=== PATIENT | male | born 1955 | race Caucasian/White ===

== ENCOUNTER 2016-10-20 13:58 | Inpatient (IN) | payer OTHER ==
[2016-10-20] MEDS ORDERED: SODIUM CHLORIDE 0.9% 1,000 ML IV STA ×2 (14:51→15:58)
[2016-10-20] MEDS ORDERED: SODIUM CHLORIDE 0.9% 500 ML IV STA ×2 (14:51→15:58)
[2016-10-20] MEDS ORDERED: IPRATROPIUM-ALBUTEROL 3 ML NEB INHALATION STA (14:51)
[2016-10-20] MEDS ORDERED: MORPHINE SULFATE 2 MG/ML SYRINGE IVP ONE (14:52)
[2016-10-20] MEDS ORDERED: ACETAMINOPHEN IV (For NPO) 1,000 MG in EMPTY BAG 1 BAG IVPB STA (14:53)
[2016-10-20] MEDS ORDERED: KETOROLAC 30 MG/ML 1 ML VIAL IVP STA (14:53)
--- NOTE | 2016-10-20 15:08 | ED ---
General Adult HPI - General Chief complaint: Shortness of Breath Stated complaint: poss pneumonia-sent by Time Seen by Provider: 10/20/16 14:45 Source: patient, RN notes reviewed, old records reviewed Mode of arrival: ambulatory Limitations: no limitations - History of Present Illness Initial comments: This is a 61-year-old male here for evaluation of cough congestion fever and shortness of breath. Patient presented from urgent care today for further evaluation and treatment. Patient denies elevated fever earlier today. Patient does have significant history of lung disease and pleurodesis with concurrent pleural effusion secondary to ulcer colitis. Patient is with mild cough seen and no significant pain. No recent travel history no known sick contacts and no recent hospitalizations. - Related Data Home Medications Medication Instructions Recorded Confirmed Beta-Carotene [Beta Carotene] 25,000 unit PO HS 10/20/16 10/20/16 Cyanocobalamin [Vitamin B-12] 500 mcg PO HS 10/20/16 10/20/16 Levothyroxine Sodium [Synthroid] 175 mcg PO DAILY 10/20/16 10/20/16 Multivitamins, Thera [Multivitamin] 1 tab PO HS 10/20/16 10/20/16 [place]-3 Fatty Acids [[place]-3] 1,000 mg PO HS 10/20/16 10/20/16 Allergies Allergy/AdvReac Type Severity Reaction Status Date / Time No Known Allergies Allergy Verified 10/20/16 14:49 Review of Systems ROS Statement: Those systems with pertinent positive or pertinent negative responses have been documented in the HPI. ROS Other: All systems not noted in ROS Statement are negative. Past Medical History Additional Past Medical History / Comment(s): fluid in lungs, multiple pleurocentesis, colitis History of Any Multi-Drug Resistant Organisms: None Reported Past Surgical History: Orthopedic Surgery Additional Past Surgical History / Comment(s): left shoulder, hand surgery, colectomy Past Psychological History: No Psychological Hx Reported Smoking Status: Never smoker Past Alcohol Use History: Rare Past Drug Use History: None Reported General Exam Limitations: no limitations General appearance: alert, in no apparent distress, anxious Head exam: Present: atraumatic, normocephalic, normal inspection Eye exam: Present: normal appearance, PERRL, EOMI. Absent: scleral icterus, conjunctival injection, periorbital swelling ENT exam: Present: normal exam, mucous membranes moist Neck exam: Present: normal inspection. Absent: tenderness, meningismus, lymphadenopathy Respiratory exam: Present: normal lung sounds bilaterally, decreased breath sounds, prolonged expiratory. Absent: respiratory distress, wheezes, rales, rhonchi, stridor Cardiovascular Exam: Present: normal rhythm, tachycardia, normal heart sounds. Absent: systolic murmur, diastolic murmur, rubs, gallop, clicks GI/Abdominal exam: Present: soft, normal bowel sounds. Absent: distended, tenderness, guarding, rebound, rigid Extremities exam: Present: normal inspection, full ROM, normal capillary refill. Absent: tenderness, pedal edema, joint swelling, calf tenderness Back exam: Present: normal inspection Neurological exam: Present: alert, oriented X3, CN II-XII intact Psychiatric exam: Present: normal affect, normal mood Skin exam: Present: warm, dry, intact, normal color. Absent: rash Course Vital Signs 10/20/16 10/20/16 14:14 15:52 Temperature 100.4 F H Pulse Rate 102 H 93 Respiratory 20 Rate Blood Pressure 135/77 O2 Sat by Pulse 90 L Oximetry - Reevaluation(s) Reevaluation #1: 10/20/16 15:57 Patient does have improvement with symptomatically treatment Reevaluation #2: 10/20/16 15:57 Oxygenation has improved with breathing treatment EKG Findings - EKG Comments: EKG Findings:: EKG shows sinus rhythm rate of 91, HI 156, QRS 140, QTC 477 Medical Decision Making - Medical Decision Making 61 male ER for evaluation of fever, cough and congestion, positive source of pneumonia, patient do not asepsis, no elevated white count oxygen lower up on arrival to emergency room, improved with breathing treatments and oxygenation. Patient be admitted for monitoring of pulmonary status - Lab Data Result diagrams: 10/20/16 15:01 Lab Results 10/20/16 Range/Units 15:01 WBC 10.6 (3.8-10.6) k/uL RBC 5.10 (4.30-5.90) m/uL Hgb 15.9 (13.0-17.5) gm/dL Hct 49.4 (39.0-53.0) % MCV 96.9 (80.0-100.0) fL MCH 31.3 (25.0-35.0) pg MCHC 32.3 (31.0-37.0) g/dL RDW 12.9 (11.5-15.5) % Plt Count 316 (150-450) k/uL Neutrophils % 78 % Lymphocytes % 7 % Monocytes % 10 % Eosinophils % 1 % Basophils % 0 % Neutrophils # 8.2 H (1.3-7.7) k/uL Lymphocytes # 0.8 L (1.0-4.8) k/uL Monocytes # 1.1 H (0-1.0) k/uL Eosinophils # 0.1 (0-0.7) k/uL Basophils # 0.0 (0-0.2) k/uL - Radiology Data Radiology results: report reviewed (Chest x-ray two-view positive for pneumonia) , image reviewed Critical Care Time Critical Care Time: Yes Total Critical Care Time: 31 Disposition Clinical Impression: Community acquired pneumonia Disposition: ADMITTED IP TO THIS [facility] Condition: Fair Referrals: Rigo Corcoran MD [Primary Care Provider] - 1-2 days
--- NOTE | 2016-10-20 15:30 | XR ---
EXAMINATION TYPE: XR chest 2V DATE OF EXAM: 10/20/2016 3:26 PM COMPARISON: NONE INDICATION: Short of breath difficulty breathing TECHNIQUE: Frontal and lateral views of the chest are obtained. FINDINGS: The heart size is normal. The pulmonary vasculature is normal. There is a moderate right pleural effusion. A right lower lobe infiltrate is present. Mild left lower lobe infiltrate is present. IMPRESSION: 1. Bibasilar infiltrates. Follow-up to clearing is recommended. 2. Moderate right pleural effusion
[2016-10-20] MEDS: SODIUM CHLORIDE 0.9% 1,000 ML IV STA ×2 (15:41→15:44)
[2016-10-20 15:45] LABS: Basophils % (A) 0 %; CH 31.2; CHCM 32.3; Eosinophils # (A) 0.1 k/uL (0-0.7); Eosinophils % (A) 1 %; HCT 49.4 % (39.0-53.0); HDW 2.19; HGB 15.9 gm/dL (13.0-17.5); Luc # (Auto) 0.39; Luc % (Auto) 4; Lymphocytes # (A) 0.8 k/uL (1.0-4.8); Lymphocytes % (A) 7 %; MCH 31.3 pg (25.0-35.0); MCHC 32.3 g/dL (31.0-37.0); MCV 96.9 fL (80.0-100.0); Mean Platelet Volume 7.2; Monocytes # (A) 1.1 k/uL (0-1.0); Monocytes % (A) 10 %; Neutrophils # (A) 8.2 k/uL (1.3-7.7); Neutrophils % (A) 78 %; RDW 12.9 % (11.5-15.5); WBC 10.6 k/uL (3.8-10.6); WBC (Perox) 10.82
[2016-10-20 15:57] LABS: INR 1.1 (<1.1); Partial Thromboplastin Time 26.7 sec (22.0-30.0); Prothrombin Time 10.8 sec (9.0-12.0)
[2016-10-20] MEDS ORDERED: LEVOFLOXACIN 750MG-D5W PMX 750 MG in DEXTROSE/WATER 1 150ML.BAG IVPB STA (15:58)
[2016-10-20] MEDS ORDERED: PNEUMONIA PROTOCOL UTILIZED 1 EACH MISC PO PRN (15:58)
[2016-10-20] MEDS ORDERED: ACETAMINOPHEN IV (For NPO) 1,000 MG in EMPTY BAG 1 BAG IVPB PRN (15:59)
[2016-10-20] MEDS ORDERED: MORPHINE SULFATE 4 MG/ML SYRINGE IVP PRN (15:59)
[2016-10-20 16:00] LABS: ALT 93 U/L (21-72); AST 92 U/L (17-59); Alkaline Phosphatase 161 U/L (38-126); Anion Gap 11 mmol/L; Blood Urea Nitrogen 11 mg/dL (9-20); Calcium 9.1 mg/dL (8.4-10.2); Carbon Dioxide 28 mmol/L (22-30); Chloride 99 mmol/L (98-107); Glucose 91 mg/dL (74-99); Magnesium 2.1 mg/dL (1.6-2.3); Non-African American GFR(MDRD) >60 (>60 ml/min/1.73 sqM); Sodium 138 mmol/L (137-145); Total Bilirubin 1.4 mg/dL (0.2-1.3); Total Protein 7.2 g/dL (6.3-8.2)
[2016-10-20 16:11] LABS: Potassium 5.3 mmol/L (3.5-5.1)
[2016-10-20 16:16] LABS: Creatine Kinase 81 U/L (55-170)
[2016-10-20 16:27] LABS: Creatine Kinase MB 1.3 ng/mL (0.0-2.4); Troponin I <0.012 ng/mL (0.000-0.034)
[2016-10-20 18:08] VITALS: BMI 25.3
[2016-10-20] MEDS: SODIUM CHLORIDE 0.9% 1,000 ML IV SCH (18:26)
--- NOTE | 2016-10-20 19:51 | P.HPIM ---
History of Present Illness H&P Date: 10/20/16 Chief Complaint: Cough with fever and shortness of breath. This is a history and physical on a 61-year-old white male who has an underlying history of pleurodesis in the past for chronic pleural effusion. The patient has been complaining of fever and chills. His , who states that for the last 2 weeks he's been probably working a little bit too hard and has been complaining of a sore throat. Low-grade fever stated. X-ray does show bilateral pneumonia with right pleural effusion Therefore, he is appropriately admitted. Review of Systems Constitutional: Reports fever Respiratory: Reports as per HPI, Reports cough, Reports cough with sputum, Reports respiratory infections Gastrointestinal: Reports as per HPI Musculoskeletal: Denies myalgias Integumentary: Denies pruritus, Denies rash Past Medical History Additional Past Medical History / Comment(s): fluid in lungs, multiple pleurocentesis, ulcer colitis History of Any Multi-Drug Resistant Organisms: None Reported Past Surgical History: Orthopedic Surgery, Ventriculoperitoneal Shunt Additional Past Surgical History / Comment(s): left shoulder, hand surgery, colectomy with reversal; thyroid removal with radiation Past Anesthesia/Blood Transfusion Reactions: No Reported Reaction Past Psychological History: No Psychological Hx Reported Smoking Status: Never smoker Past Alcohol Use History: Rare Past Drug Use History: None Reported Medications and Allergies Home Medications Medication Instructions Recorded Confirmed Type Beta-Carotene [Beta Carotene] 25,000 unit PO HS 10/20/16 10/20/16 History Cyanocobalamin [Vitamin B-12] 500 mcg PO HS 10/20/16 10/20/16 History Levothyroxine Sodium [Synthroid] 175 mcg PO DAILY 10/20/16 10/20/16 History Multivitamins, Thera [Multivitamin] 1 tab PO HS 10/20/16 10/20/16 History [place]-3 Fatty Acids [[place]-3] 1,000 mg PO HS 10/20/16 10/20/16 History Allergies Allergy/AdvReac Type Severity Reaction Status Date / Time No Known Allergies Allergy Verified 10/20/16 14:49 Physical Exam Vitals: Vital Signs Temp Pulse Pulse Resp BP BP Pulse Ox 10/20/16 18:53 97.2 F L 86 16 115/69 92 L 10/20/16 17:40 98.5 F 89 16 117/65 97 10/20/16 16:25 98.4 F 99 18 131/64 91 L 10/20/16 16:01 95 Intake and Output 10/20/16 10/20/16 10/20/16 06:59 14:59 22:59 Other: Voiding Method Toilet Weight 73.5 kg Patient Weight 10/21/16 06:59 Weight 73.5 kg - Constitutional General appearance: no acute distress - EENT Eyes: EOMI - Neck Neck: no lymphadenopathy - Respiratory Respiratory: right: diminished - Cardiovascular Rhythm: regular Heart sounds: normal: S1, S2 - Gastrointestinal General gastrointestinal: soft, no tenderness - Neurologic Neurologic: CNII-XII intact, focal deficits - Psychiatric Psychiatric: A&O x's 3, appropriate affect Results CBC & Chem 7: 10/20/16 15:01 10/20/16 15:01 Thrombosis Risk Factor Assmnt - Choose All That Apply Any of the Below Risk Factors Present?: Yes Each Factor Represents 1 point: Age 41-60 years, Sepsis (< 1month) Thrombosis Risk Factor Assessment Total Risk Factor Score: 2 Thrombosis Risk Factor Assessment Level: Low Risk Assessment and Plan (1) Community acquired pneumonia Status: Acute (2) Pleural effusion Status: Acute Plan: Continue current regimen of antibiotic treatment. Nebulizers also given. Question need for steroid and possible pulmonology referral if the patient does not improve. Otherwise, he is a full code.
[2016-10-20] MEDS: IPRATROPIUM-ALBUTEROL 3 ML NEB INHALATION SCH (20:29)
[2016-10-20] MEDS: MULTIVITAMINS, THERA 1 EACH TAB PO SCH (20:34)
[2016-10-20] MEDS: IBUPROFEN 600 MG TAB PO PRN (20:34)
[2016-10-20] MEDS: BETA CAROTENE 25000 UNIT PO SCH (20:34)
[2016-10-20] MEDS: CYANOCOBALAMIN 500 MCG TAB PO SCH (20:34)
[2016-10-20] MEDS ORDERED: NON-FORMULARY DRUG (Omega-3 Fatty Acids [Omega-3] 1,000 MG) PO SCH (21:00)
[2016-10-20] MEDS ORDERED: HYDROcodone/APAP 5-325MG 1 EACH TAB PO PRN (22:28)
[2016-10-21] MEDS: SODIUM CHLORIDE 0.9% 1,000 ML IV SCH ×3 (02:08→20:08)
[2016-10-21] MEDS: LEVOTHYROXINE 100 MCG TAB PO SCH (06:26)
[2016-10-21] MEDS: LEVOTHYROXINE 75 MCG TAB PO SCH (06:26)
[2016-10-21] MEDS: IPRATROPIUM-ALBUTEROL 3 ML NEB INHALATION SCH ×4 (07:57→20:04)
--- NOTE | 2016-10-21 08:33 | XR ---
EXAMINATION TYPE: XR chest 2V DATE OF EXAM: 10/21/2016 8:29 AM COMPARISON: 10/20/2016 HISTORY: Shortness of breath TECHNIQUE: Frontal and lateral views of the chest are obtained. FINDINGS: Scattered senescent parenchymal changes noted. Hyperinflation compatible with COPD. Persistent airspace consolidation right lower lobe with loculated right-sided pleural effusion. No si gnificant change appreciated. Heart size is stable. Mediastinal structures are stable and grossly unremarkable. No evidence for hilar prominence. Degenerative changes dorsal spine. IMPRESSION: 1. Persistent airspace consolidation right lower lobe with loculated right-sided pleural effusion. No significant change appreciated.
--- NOTE | 2016-10-21 08:35 | US ---
EXAMINATION TYPE: US chest DATE OF EXAM: 10/21/2016 8:23 AM COMPARISON: NONE CLINICAL HISTORY: US. EXAM MEASUREMENTS: No pleural effusion identified. Right side marked for possible thoracentesis outside the dept. Left side marked for possible thoracentesis outside the dept. Pulmonologists are able to review the images in the patient?s EMR. IMPRESSION: Right chest scanned, No fluid visualized, not marked for drainage.
[2016-10-21] MEDS: IBUPROFEN 600 MG TAB PO PRN ×2 (09:39→18:05)
--- NOTE | 2016-10-21 12:37 | P.CNPUL ---
History of Present Illness Consult date: 10/21/16 Requesting physician: Rigo Corcoran Reason for consult: abnormal CXR/CT Chief complaint: Shortness of breath, cough, congestion History of present illness: This is a very pleasant 61-year-old gentleman who follows with Dr. Corcoran as his primary care physician. He has a history of ulcerative colitis status post colectomy and hypothyroidism secondary to thyroidectomy with radiation. He is a lifelong nonsmoker. He also follows with Dr. James in our office for chronic bilateral recurrent pleural effusions secondary to the colitis. He is status post pleurodesis bilaterally. He had a second pleurodesis performed on the right lung by Dr. Conrad in the [facility] many years ago. He had not had significant recurrent pleural effusions since that time. He presented here yesterday with complaints of increasing shortness of breath cough congestion and fever. He was seen in Dr. Corcoran's office and subsequently recommended admission for suspected bilateral pneumonias with right pleural effusion. He is seen today on the regular medical floor in consultation. He is awake and alert in no acute distress. He states he is breathing easier today as compared to yesterday. He continues with a headache and chills. He does have a productive cough of thick yellowish-green sputum. His chest x-ray today reveals some improvement in the left lung infiltrate with continued loculated pleural effusion on the right per ultrasound. He is currently afebrile. He is maintaining good O2 saturations in the low 90s on room air. He's been hemodynamically stable. No leukocytosis. Influenza screen is negative. His liver enzymes and alk phos are slightly elevated. Review of Systems 14 point review of system was conducted. All negative other than as mentioned in HPI. Past Medical History Additional Past Medical History / Comment(s): Recurrent bilateral pleural effusions with previous thoracentesis and bilateral pleurodesis secondary to ulcer colitis, status post colectomy. History of Any Multi-Drug Resistant Organisms: None Reported Past Surgical History: Orthopedic Surgery, Ventriculoperitoneal Shunt Additional Past Surgical History / Comment(s): left shoulder, hand surgery, colectomy with reversal; thyroid removal with radiation Past Anesthesia/Blood Transfusion Reactions: No Reported Reaction Past Psychological History: No Psychological Hx Reported Smoking Status: Never smoker Past Alcohol Use History: Rare Past Drug Use History: None Reported Medications and Allergies Home Medications Medication Instructions Recorded Confirmed Type Beta-Carotene [Beta Carotene] 25,000 unit PO HS 10/20/16 10/20/16 History Cyanocobalamin [Vitamin B-12] 500 mcg PO HS 10/20/16 10/20/16 History Levothyroxine Sodium [Synthroid] 175 mcg PO DAILY 10/20/16 10/20/16 History Multivitamins, Thera [Multivitamin] 1 tab PO HS 10/20/16 10/20/16 History Her[place]-3 Fatty Acids [Heron-3] 1,000 mg PO HS 10/20/16 10/20/16 History Allergies Allergy/AdvReac Type Severity Reaction Status Date / Time No Known Allergies Allergy Verified 10/20/16 14:49 Physical Exam GENERAL EXAM: Alert, active, comfortable in no apparent distress. HEAD: Normocephalic. EYES: Normal reaction of pupils, equal size. NOSE: Clear with pink turbinates. THROAT: No erythema or exudates. NECK: No masses, no JVD. CHEST: No chest wall deformity. LUNGS: Equal air entry with no crackles in the right posterior base. CVS: S1 and S2 normal with no audible murmurs, regular rhythm. ABDOMEN: No hepatosplenomegaly, normal bowel sounds, no guarding or rigidity. SPINE: No scoliosis or deformity SKIN: No rashes CENTRAL NERVOUS SYSTEM: No focal deficits, tone is normal in all 4 extremities. Extremities: There is no significant peripheral edema. No clubbing, no cyanosis. Peripheral pulses are intact. Results - Laboratory Findings CBC and BMP: 10/20/16 15:01 10/20/16 15:01 PT/INR, D-dimer PT 10.8 sec (9.0-12.0) 10/20/16 15:01 INR 1.1 (<1.1) 10/20/16 15:01 - Diagnostic Findings Chest x-ray: image reviewed Assessment and Plan Plan: Impression: #1 Right lower lobe pneumonia, suspect community-acquired. #2 Chronic right loculated pleural effusion. #3 History of recurrent bilateral pleural effusions status post bilateral pleurodesis with second pleurodesis on the right #4 History of ulcerative colitis status post colectomy. #5 History of thyroid cancer status post thyroidectomy with radiation. Plan: The patient was seen and evaluated by Dr. James. His chest x-rays, ultrasound and labs were reviewed. There is no plans for repeat thoracentesis of the right lung. This fluid is loculated and chronic and nature. Also, the patient has had bilateral pleurodesis with the second pleurodesis performed on the right lung. The patient is in no acute respiratory distress and is maintaining good O2 saturations in the 90s on room air. We'll treat him for his suspected pneumonia. We'll continue with his current antibiotic in the form of Levaquin. He remains on bronchodilators 4 times a day and when necessary. We will increase his activity as tolerated. We'll continue to follow make further recommendations based on his clinical status. Time with Patient: Greater than 30
[2016-10-21] MEDS ORDERED: LEVOFLOXACIN 750MG-D5W PMX 750 MG in DEXTROSE/WATER 1 150ML.BAG IVPB SCH (16:00)
[2016-10-21 17:31] LABS: Anion Gap 8 mmol/L; Blood Urea Nitrogen 13 mg/dL (9-20); Calcium 8.3 mg/dL (8.4-10.2); Carbon Dioxide 28 mmol/L (22-30); Chloride 101 mmol/L (98-107); Glucose 170 mg/dL (74-99); Non-African American GFR(MDRD) >60 (>60 ml/min/1.73 sqM); Potassium 4.1 mmol/L (3.5-5.1); Sodium 137 mmol/L (137-145)
[2016-10-21] MEDS: ACETAMINOPHEN TAB 325 MG TAB PO PRN (20:04)
[2016-10-21] MEDS: MULTIVITAMINS, THERA 1 EACH TAB PO SCH (20:04)
[2016-10-21] MEDS: BETA CAROTENE 25000 UNIT PO SCH (20:04)
[2016-10-21] MEDS: CYANOCOBALAMIN 500 MCG TAB PO SCH (20:05)
[2016-10-22] MEDS: ACETAMINOPHEN TAB 325 MG TAB PO PRN (04:58)
[2016-10-22] MEDS: LEVOTHYROXINE 75 MCG TAB PO SCH (06:25)
[2016-10-22] MEDS: LEVOTHYROXINE 100 MCG TAB PO SCH (06:25)
[2016-10-22 07:34] VITALS: BP 127/76; PULSE 83; RESP 16; TEMP 97.2
[2016-10-22] MEDS: SODIUM CHLORIDE 0.9% 1,000 ML IV SCH (08:00)
[2016-10-22] MEDS: IBUPROFEN 600 MG TAB PO PRN (08:04)
--- NOTE | 2016-10-22 08:17 | P.DS ---
Providers Date of admission: 10/21/16 12:20 Attending physician: Rigo Corcoran Primary care physician: Rigo Corcoran - Discharge Diagnosis(es) (1) Community acquired pneumonia Current Visit: Yes Status: Acute (2) Pleural effusion Current Visit: Yes Status: Acute Patient Condition at Discharge: Fair Plan - Discharge Summary New Discharge Prescriptions: Levofloxacin [Levaquin] 750 mg PO DAILY #5 tab Discharge Medication List Beta-Carotene [Beta Carotene] 25,000 unit PO HS 10/20/16 [History] Cyanocobalamin [Vitamin B-12] 500 mcg PO HS 10/20/16 [History] Levothyroxine Sodium [Synthroid] 175 mcg PO DAILY 10/20/16 [History] Multivitamins, Thera [Multivitamin] 1 tab PO HS 10/20/16 [History] [place]-3 Fatty Acids [[place]-3] 1,000 mg PO HS 10/20/16 [History] Levofloxacin [Levaquin] 750 mg PO DAILY #5 tab 10/22/16 [Rx] Follow up Appointment(s)/Referral(s): Rigo Corcoran MD [Primary Care Provider] - 1 Week Discharge Disposition: HOME SELF-CARE
[2016-10-22] MEDS: IPRATROPIUM-ALBUTEROL 3 ML NEB INHALATION SCH (08:22)
[2016-10-22 08:56] LABS: CHCM 31.6; HCT 46.3 % (39.0-53.0); HDW 2.28; HGB 14.5 gm/dL (13.0-17.5); MCHC 31.4 g/dL (31.0-37.0); MCV 98.7 fL (80.0-100.0); Mean Platelet Volume 7.3; RBC 4.69 m/uL (4.30-5.90); WBC 9.3 k/uL (3.8-10.6)
[2016-10-22 09:17] LABS: ALT 63 U/L (21-72); AST 36 U/L (17-59); Alkaline Phosphatase 122 U/L (38-126); Anion Gap 10 mmol/L; Blood Urea Nitrogen 9 mg/dL (9-20); Calcium 8.9 mg/dL (8.4-10.2); Carbon Dioxide 28 mmol/L (22-30); Chloride 102 mmol/L (98-107); Glucose 181 mg/dL (74-99); Non-African American GFR(MDRD) >60 (>60 ml/min/1.73 sqM); Potassium 4.3 mmol/L (3.5-5.1); Sodium 140 mmol/L (137-145); Total Bilirubin 0.7 mg/dL (0.2-1.3); Total Protein 6.2 g/dL (6.3-8.2)
--- NOTE | 2016-10-22 11:19 | P.PN ---
Subjective This is a very pleasant 61-year-old gentleman who follows with Dr. Corcoran as his primary care physician. He has a history of ulcerative colitis status post colectomy and hypothyroidism secondary to thyroidectomy with radiation. He is a lifelong nonsmoker. He also follows with Dr. James in our office for chronic bilateral recurrent pleural effusions secondary to the colitis. He is status post pleurodesis bilaterally. He had a second pleurodesis performed on the right lung by Dr. Conrad in the [facility] many years ago. He had not had significant recurrent pleural effusions since that time. He presented here yesterday with complaints of increasing shortness of breath cough congestion and fever. He was seen in Dr. Corcoran's office and subsequently recommended admission for suspected bilateral pneumonias with right pleural effusion. Influenza screen is negative. He is seen again today 10/22/2016 in follow-up. He is awake and alert in no acute distress. He's been up to the shower. He is anxious to go home. He denies any worsening shortness of breath, cough or congestion. He remains without leukocytosis. Afebrile. Maintaining good O2 saturations in the mid 90s on room air. Objective - Vital Signs Vital signs: Vital Signs Temp 97.2 F L 10/22/16 07:00 Pulse 83 10/22/16 07:00 Resp 16 10/22/16 07:00 BP 127/76 10/22/16 07:00 Pulse Ox 94 L 10/22/16 07:00 Intake & Output 10/21/16 10/22/16 10/22/16 18:59 06:59 18:59 Intake Total 500 Balance 500 Intake: Oral 500 Other: Voiding Method Toilet # Voids 1 2 - Exam GENERAL EXAM: Alert, active, comfortable in no apparent distress. HEAD: Normocephalic. EYES: Normal reaction of pupils, equal size. NOSE: Clear with pink turbinates. THROAT: No erythema or exudates. NECK: No masses, no JVD. CHEST: No chest wall deformity. LUNGS: Equal air entry with no wheeze, rhonchi or dullness. There is faint crackles in the right posterior base. CVS: S1 and S2 normal with no audible murmurs, regular rhythm. ABDOMEN: No hepatosplenomegaly, normal bowel sounds, no guarding or rigidity. SPINE: No scoliosis or deformity SKIN: No rashes CENTRAL NERVOUS SYSTEM: No focal deficits, tone is normal in all 4 extremities. Extremities: There is no significant peripheral edema. No clubbing, no cyanosis. Peripheral pulses are intact. - Labs CBC & Chem 7: 10/22/16 08:23 10/22/16 08:23 Labs: Abnormal Lab Results - Last 24 Hours (Table) 10/21/16 10/22/16 Range/Units 17:04 08:23 Glucose 170 H 181 H (74-99) mg/dL Calcium 8.3 L (8.4-10.2) mg/dL Total Protein 6.2 L (6.3-8.2) g/dL Albumin 3.0 L (3.5-5.0) g/dL Assessment and Plan Plan: Impression: #1 Right lower lobe pneumonia, suspect community-acquired. #2 Chronic right loculated pleural effusion. #3 History of recurrent bilateral pleural effusions status post bilateral pleurodesis with second pleurodesis on the right. #4 History of ulcerative colitis status post colectomy. #5 History of thyroid cancer status post thyroidectomy with radiation. Plan: The patient was seen and evaluated by Dr. James. His chest x-rays, ultrasound and labs were reviewed. There is no plans for repeat thoracentesis of the right lung. This fluid is loculated and chronic and nature. Also, the patient has had bilateral pleurodesis with the second pleurodesis performed on the right lung. The patient is in no acute respiratory distress and is maintaining good O2 saturations in the 90s on room air. We have treated him for suspected pneumonia. We'll continue with his current antibiotic in the form of Levaquin. He remains on bronchodilators 4 times a day and when necessary. He is cleared for discharge from the pulmonary standpoint. He'll follow-up in our office in 1 week's time. We'll repeat his chest x-ray them. He and his are both encouraged to call sooner with any recurrence of symptoms or other questions or concerns.
[2016-10-22] MEDS ORDERED: LEVOFLOXACIN 750 MG TAB PO SCH (16:00)
== END 2016-10-22 11:14 | disposition home or self-care (01) | DRG 194 ==
LOC: EC 13:58 → OBSVTOIN 16:00 → 4MS4W 16:00 → INTOOBSV 10-21 12:20 → OBSVTOIN 10-21 12:20 → UNDODISIN 10-22 11:14
PROVIDERS: ADMIT Family Medicine; ATTEND Family Medicine
DX: J18.9 Pneumonia, unspecified organism (principal); J91.8 Pleural effusion in other conditions classified elsewhere; E89.0 Postprocedural hypothyroidism; Z85.850 Personal history of malignant neoplasm of thyroid; Z90.49 Acquired absence of other specified parts of digestive tract; Z98.2 Presence of cerebrospinal fluid drainage device; Z92.3 Personal history of irradiation; Z79.899 Other long term (current) drug therapy
CPT/HCPCS: 36415; 71020; 76604; 80048; 80053; 82550; 82553; 83605; 83735; 83880; 84484; 85025; 85027; 85610; 85730; 87040; 87070; 87205; 87502; 93005; 94640; 96365; 96366; 96367; 96375; 99291

== ENCOUNTER 2020-05-26 03:27 | Inpatient (IN) | payer OTHER ==
[2020-05-26] MEDS ORDERED: LEVOFLOXACIN 750MG-D5W PMX 750 MG in DEXTROSE/WATER 1 150ML.BAG IVPB STA ×2 (03:47→05:57)
[2020-05-26] MEDS ORDERED: IPRATROPIUM-ALBUTEROL 3 ML NEB INHALATION STA (03:47)
[2020-05-26] MEDS ORDERED: PIPERACILLIN-TAZOBACTAM 3.375 GM in SODIUM CHLORIDE 0.9% 100 ML IVPB ONE (04:00)
[2020-05-26 04:13] LABS: Basophils % (A) 1 %; Eosinophils # (A) 0.2 k/uL (0-0.7); Eosinophils % (A) 2 %; HCT 53.4 % (39.0-53.0); HGB 16.8 gm/dL (13.0-17.5); Hypochromasia Slight; Lymphocytes # (A) 0.4 k/uL (1.0-4.8); Lymphocytes % (A) 6 %; MCH 31.4 pg (25.0-35.0); MCHC 31.5 g/dL (31.0-37.0); MCV 99.9 fL (80.0-100.0); Monocytes # (A) 0.5 k/uL (0-1.0); Monocytes % (A) 6 %; Neutrophils # (A) 6.2 k/uL (1.3-7.7); Neutrophils % (A) 83 %; Platelet Count 175 k/uL (150-450); RBC 5.35 m/uL (4.30-5.90); RDW 13.5 % (11.5-15.5); WBC 7.4 k/uL (3.8-10.6)
[2020-05-26 04:24] LABS: Appearance,Urine Clear (Clear); Bilirubin,Urine Negative (Negative); Blood,Urine Trace (Negative); Color,Urine Dark Yellow; Glucose,Urine (UA) Negative (Negative); Ketones,Urine Negative (Negative); Leukocyte Esterase,Urine Negative (Negative); Mucus,Urine Moderate /hpf; Nitrite,Urine Negative (Negative); PH, Urine 5.5 (5.0-8.0); Protein,Urine 1+ (Negative); RBC,Urine 3 /hpf (0-5); Specific Gravity,Urine 1.021 (1.001-1.035); Squamous Epithelial Cell,Urine <1 /hpf (0-4); Urobilinogen,Urine <2.0 mg/dL (<2.0); WBC,Urine 3 /hpf (0-5)
[2020-05-26 04:26] LABS: ALT 38 U/L (4-49); AST 47 U/L (17-59); African American GFR (CKD) >90 (>60 ml/min/1.73 sqM); Albumin 3.7 g/dL (3.5-5.0); Alkaline Phosphatase 92 U/L (38-126); Anion Gap 5 mmol/L; Blood Urea Nitrogen 13 mg/dL (9-20); Calcium 8.7 mg/dL (8.4-10.2); Carbon Dioxide 30 mmol/L (22-30); Chloride 97 mmol/L (98-107); Glucose 119 mg/dL (74-99); Magnesium 1.8 mg/dL (1.6-2.3); Non-African American GFR(CKD) >90 (>60 ml/min/1.73 sqM); Potassium 4.5 mmol/L (3.5-5.1); Sodium 132 mmol/L (137-145)
[2020-05-26 04:30] LABS: Partial Thromboplastin Time 27.2 sec (22.0-30.0); Prothrombin Time 10.2 sec (9.0-12.0)
[2020-05-26 04:42] LABS: D-Dimer 1.15 mg/L FEU (<0.60)
--- NOTE | 2020-05-26 04:58 | XR ---
EXAMINATION TYPE: XR chest 1V portable DATE OF EXAM: 05/26/2020 COMPARISON: 03/23/2020 HISTORY: Fever TECHNIQUE: FINDINGS: Heart is enlarged. There is pulmonary vascular congestion. There is large right pleural eff usion. There is smaller left pleural effusion. There is also airspace infiltrate in both lungs. There are chest leads. IMPRESSION: Chronic bilateral pleural effusions are increased compared to old exam. There is evidence for congestive heart failure and bilateral pneumonia that is increased compared to old exam. Right s david chronic empyema is possible.
--- NOTE | 2020-05-26 04:59 | ED ---
SOB HPI - General Chief Complaint: Shortness of Breath Stated Complaint: Fever, SOB Time Seen by Provider: 05/26/20 03:41 Source: patient Mode of arrival: ambulatory Limitations: no limitations - History of Present Illness Initial Comments: This patient is 65-year-old man who presents to be evaluated for fever or shortness of breath and some chest discomfort. He states he also is having a little bit of headache intermittently for the previous day. He gives history of having previous decortication of the bilateral lungs for what sounds like empyema previously, but these were performed over 10 years ago. MD Complaint: shortness of breath, chest pain -: hour(s) Severity: moderate Quality: aching Consistency: constant Improves With: nothing Worsens With: nothing Known History Of: other Associated Symptoms: fever Treatments Prior to Arrival: none - Related Data Home Medications Medication Instructions Recorded Confirmed Multivitamins, Thera [Multivitamin] 1 tab PO HS 10/20/16 05/26/20 Levothyroxine Sodium 112 mcg PO DAILY 05/26/20 05/26/20 Allergies Allergy/AdvReac Type Severity Reaction Status Date / Time No Known Allergies Allergy Verified 05/26/20 10:26 Review of Systems ROS Statement: Those systems with pertinent positive or pertinent negative responses have been documented in the HPI. ROS Other: All systems not noted in ROS Statement are negative. Constitutional: Reports: fever, chills, weakness ENT: Denies: congestion Respiratory: Reports: cough, dyspnea. Denies: wheezes, hemoptysis Cardiovascular: Reports: chest pain, palpitations. Denies: orthopnea, edema, syncope Gastrointestinal: Denies: abdominal pain, nausea, vomiting, diarrhea Genitourinary: Denies: dysuria, hematuria Musculoskeletal: Denies: back pain Skin: Denies: rash Neurological: Denies: headache, weakness, numbness Past Medical History Additional Past Medical History / Comment(s): Recurrent bilateral pleural effusions with previous thoracentesis and bilateral pleurodesis secondary to ulcer colitis, status post colectomy. History of Any Multi-Drug Resistant Organisms: None Reported Past Surgical History: Orthopedic Surgery, Ventriculoperitoneal Shunt Additional Past Surgical History / Comment(s): left shoulder, hand surgery, colectomy with reversal; thyroid removal with radiation Past Anesthesia/Blood Transfusion Reactions: No Reported Reaction Past Psychological History: No Psychological Hx Reported Smoking Status: Never smoker Past Alcohol Use History: Rare Past Drug Use History: None Reported - Past Family History Father Family Medical History: Myocardial Infarction ([place]) Additional Family Medical History / Comment(s): Mother Family Medical History: Cancer Additional Family Medical History / Comment(s): General Exam Limitations: no limitations General appearance: alert, in no apparent distress Head exam: Present: atraumatic, normocephalic Eye exam: Present: normal appearance. Absent: scleral icterus, conjunctival injection ENT exam: Present: normal oropharynx Neck exam: Present: normal inspection, full ROM. Absent: meningismus Respiratory exam: Present: respiratory distress (Mild tachypnea), rales, rhonchi. Absent: wheezes, stridor, accessory muscle use, decreased breath sounds, prolonged expiratory Cardiovascular Exam: Present: normal rhythm, tachycardia, normal heart sounds. Absent: systolic murmur, diastolic murmur, rubs, gallop GI/Abdominal exam: Present: soft. Absent: distended, tenderness, guarding, rebound, rigid, mass Extremities exam: Present: normal inspection, normal capillary refill. Absent: pedal edema, calf tenderness Back exam: Present: normal inspection. Absent: CVA tenderness (R), CVA tendern ess (L) Neurological exam: Present: alert Skin exam: Present: warm, dry, intact, normal color. Absent: rash Course Vital Signs 05/26/20 05/26/20 05/26/20 03:33 04:07 04:18 Temperature 102.2 F H Pulse Rate 120 H 114 H 111 H Respiratory 42 H Rate Blood Pressure 140/77 O2 Sat by Pulse 64 L Oximetry 05/26/20 05/26/20 05/26/20 04:45 05:46 05:58 Temperature 102.4 F H 102.2 F H Pulse Rate 101 H 105 H Respiratory 20 26 H Rate Blood Pressure 154/86 137/77 O2 Sat by Pulse 94 L 93 L 94 L Oximetry 05/26/20 05/26/20 06:05 06:45 Temperature 101.3 F H 98.0 F Pulse Rate 102 H Respiratory 22 Rate Blood Pressure 96/69 O2 Sat by Pulse 93 L Oximetry Medical Decision Making - Lab Data Result diagrams: 05/27/20 06:20 05/27/20 06:20 Lab Results 05/26/20 05/26/20 05/26/20 Range/Units 03:55 03:55 03:55 WBC (3.8-10.6) k/uL RBC (4.30-5.90) m/uL Hgb (13.0-17.5) gm/dL Hct (39.0-53.0) % MCV (80.0-100.0) fL MCH (25.0-35.0) pg MCHC (31.0-37.0) g/dL RDW (11.5-15.5) % Plt Count (150-450) k/uL Neutrophils % % Lymphocytes % % Monocytes % % Eosinophils % % Basophils % % Neutrophils # (1.3-7.7) k/uL Lymphocytes # (1.0-4.8) k/uL Monocytes # (0-1.0) k/uL Eosinophils # (0-0.7) k/uL Basophils # (0-0.2) k/uL Hypochromasia PT (9.0-12.0) sec INR (<1.2) APTT (22.0-30.0) sec D-Dimer (<0.60) mg/L FEU Sodium (137-145) mmol/L Potassium (3.5-5.1) mmol/L Chloride (98-107) mmol/L Carbon Dioxide (22-30) mmol/L Anion Gap mmol/L BUN (9-20) mg/dL Creatinine (0.66-1.25) mg/dL Est GFR (CKD-EPI)AfAm (>60 ml/min/1.73 sqM) Est GFR (CKD-EPI)NonAf (>60 ml/min/1.73 sqM) Glucose (74-99) mg/dL Plasma Lactic Acid Bashir 1.0 (0.7-2.0) mmol/L Calcium (8.4-10.2) mg/dL Magnesium (1.6-2.3) mg/dL Total Bilirubin (0.2-1.3) mg/dL AST (17-59) U/L ALT (4-49) U/L Alkaline Phosphatase (38-126) U/L Troponin I (0.000-0.034) ng/mL NT-Pro-B Natriuret Pep pg/mL Total Protein (6.3-8.2) g/dL Albumin (3.5-5.0) g/dL Urine Color Dark Yellow Urine Appearance Clear (Clear) Urine pH 5.5 (5.0-8.0) Ur Specific [place] 1.021 (1.001-1.035) Urine Protein 1+ H (Negative) Urine Glucose (UA) Negative (Negative) Urine Ketones Negative (Negative) Urine Blood Trace H (Negative) Urine Nitrite Negative (Negative) Urine Bilirubin Negative (Negative) Urine Urobilinogen <2.0 (<2.0) mg/dL Ur Leukocyte Esterase Negative (Negative) Urine RBC 3 (0-5) /hpf Urine WBC 3 (0-5) /hpf Ur Squamous Epith Cells <1 (0-4) /hpf Urine Mucus Moderate H (None) /hpf Coronavirus (PCR) Not Detected (Not Detected) 05/26/20 05/26/20 05/26/20 Range/Units 03:58 03:58 03:58 WBC 7.4 (3.8-10.6) k/uL RBC 5.35 (4.30-5.90) m/uL Hgb 16.8 (13.0-17.5) gm/dL Hct 53.4 H (39.0-53.0) % MCV 99.9 (80.0-100.0) fL MCH 31.4 (25.0-35.0) pg MCHC 31.5 (31.0-37.0) g/dL RDW 13.5 (11.5-15.5) % Plt Count 175 (150-450) k/uL Neutrophils % 83 % Lymphocytes % 6 % Monocytes % 6 % Eosinophils % 2 % Basophils % 1 % Neutrophils # 6.2 (1.3-7.7) k/uL Lymphocytes # 0.4 L (1.0-4.8) k/uL Monocytes # 0.5 (0-1.0) k/uL Eosinophils # 0.2 (0-0.7) k/uL Basophils # 0.0 (0-0.2) k/uL Hypochromasia Slight PT 10.2 (9.0-12.0) sec INR 1.0 (<1.2) APTT 27.2 (22.0-30.0) sec D-Dimer 1.15 H (<0.60) mg/L FEU Sodium 132 L (137-145) mmol/L Potassium 4.5 (3.5-5.1) mmol/L Chloride 97 L (98-107) mmol/L Carbon Dioxide 30 (22-30) mmol/L Anion Gap 5 mmol/L BUN 13 (9-20) mg/dL Creatinine 0.69 (0.66-1.25) mg/dL Est GFR (CKD-EPI)AfAm >90 (>60 ml/min/1.73 sqM) Est GFR (CKD-EPI)NonAf >90 (>60 ml/min/1.73 sqM) Glucose 119 H (74-99) mg/dL Plasma Lactic Acid Bashir (0.7-2.0) mmol/L Calcium 8.7 (8.4-10.2) mg/dL Magnesium 1.8 (1.6-2.3) mg/dL Total Bilirubin 1.0 (0.2-1.3) mg/dL AST 47 (17-59) U/L ALT 38 (4-49) U/L Alkaline Phosphatase 92 (38-126) U/L Troponin I (0.000-0.034) ng/mL NT-Pro-B Natriuret Pep pg/mL Total Protein 7.0 (6.3-8.2) g/dL Albumin 3.7 (3.5-5.0) g/dL Urine Color Urine Appearance (Clear) Urine pH (5.0-8.0) Ur Specific [place] (1.001-1.035) Urine Protein (Negative) Urine Glucose (UA) (Negative) Urine Ketones (Negative) Urine Blood (Negative) Urine Nitrite (Negative) Urine Bilirubin (Negative) Urine Urobilinogen (<2.0) mg/dL Ur Leukocyte Esterase (Negative) Urine RBC (0-5) /hpf Urine WBC (0-5) /hpf Ur Squamous Epith Cells (0-4) /hpf Urine Mucus (None) /hpf Coronavirus (PCR) (Not Detected) 05/26/20 05/26/20 Range/Units 03:58 03:58 WBC (3.8-10.6) k/uL RBC (4.30-5.90) m/uL Hgb (13.0-17.5) gm/dL Hct (39.0-53.0) % MCV (80.0-100.0) fL MCH (25.0-35.0) pg MCHC (31.0-37.0) g/dL RDW (11.5-15.5) % Plt Count (150-450) k/uL Neutrophils % % Lymphocytes % % Monocytes % % Eosinophils % % Basophils % % Neutrophils # (1.3-7.7) k/uL Lymphocytes # (1.0-4.8) k/uL Monocytes # (0-1.0) k/uL Eosinophils # (0-0.7) k/uL Basophils # (0-0.2) k/uL Hypochromasia PT (9.0-12.0) sec INR (<1.2) APTT (22.0-30.0) sec D-Dimer (<0.60) mg/L FEU Sodium (137-145) mmol/L Potassium (3.5-5.1) mmol/L Chloride (98-107) mmol/L Carbon Dioxide (22-30) mmol/L Anion Gap mmol/L BUN (9-20) mg/dL Creatinine (0.66-1.25) mg/dL Est GFR (CKD-EPI)AfAm (>60 ml/min/1.73 sqM) Est GFR (CKD-EPI)NonAf (>60 ml/min/1.73 sqM) Glucose (74-99) mg/dL Plasma Lactic Acid Bashir (0.7-2.0) mmol/L Calcium (8.4-10.2) mg/dL Magnesium (1.6-2.3) mg/dL Total Bilirubin (0.2-1.3) mg/dL AST (17-59) U/L ALT (4-49) U/L Alkaline Phosphatase (38-126) U/L Troponin I 0.015 (0.000-0.034) ng/mL NT-Pro-B Natriuret Pep 439 pg/mL Total Protein (6.3-8.2) g/dL Albumin (3.5-5.0) g/dL Urine Color Urine Appearance (Clear) Urine pH (5.0-8.0) Ur Specific [place] (1.001-1.035) Urine Protein (Negative) Urine Glucose (UA) (Negative) Urine Ketones (Negative) Urine Blood (Negative) Urine Nitrite (Negative) Urine Bilirubin (Negative) Urine Urobilinogen (<2.0) mg/dL Ur Leukocyte Esterase (Negative) Urine RBC (0-5) /hpf Urine WBC (0-5) /hpf Ur Squamous Epith Cells (0-4) /hpf Urine Mucus (None) /hpf Coronavirus (PCR) (Not Detected) - EKG Data -: EKG Interpreted by Me EKG shows normal: sinus rhythm, axis (Normal), intervals (DC interval 152 ms, QTC 466 ms, both normal. QRS duration 138 ms which is prolonged consistent with the right bundle branch block), QRS complexes (Right bundle-branch block) Rate: tachycardia (Rate 112 bpm) Disposition Clinical Impression: Pleural effusion, Pneumonia Disposition: ADMITTED IP TO THIS HOSP Condition: Serious Is patient prescribed a controlled substance at d/c from ED?: No
[2020-05-26] MEDS ORDERED: ACETAMINOPHEN TAB 325 MG TAB PO STA (05:03)
--- NOTE | 2020-05-26 05:51 | CT ---
EXAMINATION TYPE: CT chest angio for PE DATE OF EXAM: 05/26/2020 COMPARISON: None HISTORY: sob CT DLP: 456.8 mGycm Automated exposure control for dose reduction was used. CONTRAST: Performed with IV Contrast, patient injected with 85 mL of Isovue 370. There are 3-D post processed images. Heart is moderately enlarged. There is extensive airspace consolidation in the right lower lobe. Ther e is some loculated pleural fluid along the right lateral chest wall. There is pleural calcification also. There is irregular mild pleural thickening on the left chest wall. There is enlarged paratrache al lymph node measuring 3.5 cm. There are bronchial lymph nodes up to 1 cm. I see no filling defect i n the pulmonary arteries. There is some subpleural airspace infiltrate in the posterior left upper lo be. Thoracic vertebra appear intact. There is no compression fracture. Sternum is intact. I see no focal bone destruction. Thoracic aorta is intact. There is no aneurysm or dissection. IMPRESSION: No evidence of pulmonary embolism. Extensive airspace infiltrate right lower lobe. Loculated pleural fluid on the right side with extens diana pleural calcification. Enlarged mediastinal and bronchial lymph nodes. Mild pleural thickening al so on the left side with subpleural infiltrate. I would consider possibilities of pneumonia and chronic empyema as well as mesothelioma. The pleural and pulmonary disease is also present on the old CT scan of 02/17/2011 and show some progression keon red to old exam. I think mesothelioma is less likely in view of the long time interval.
[2020-05-26] MEDS ORDERED: PNEUMONIA PROTOCOL UTILIZED 1 EACH MISC PO PRN (05:57)
[2020-05-26] MEDS ORDERED: IPRATROPIUM-ALBUTEROL 3 ML NEB INHALATION PRN (05:57)
[2020-05-26] MEDS ORDERED: ALBUTEROL NEBULIZED 2.5 MG/3 ML INHALATION PRN (05:57)
[2020-05-26] MEDS ORDERED: IBUPROFEN 600 MG TAB PO STA (05:57)
[2020-05-26] MEDS ORDERED: LEVOTHYROXINE 100 MCG TAB PO SCH ×2 (06:30)
[2020-05-26] MEDS ORDERED: LEVOTHYROXINE 75 MCG TAB PO SCH (06:30)
[2020-05-26] MEDS: SODIUM CHLORIDE 0.9% 1,000 ML IV SCH ×2 (06:46→15:40)
[2020-05-26] MEDS ORDERED: SODIUM CHLORIDE 0.9% 1,000 ML IV ONE (07:15)
[2020-05-26 11:27] LABS: C Reactive Protein 59.1 mg/L (<10.0)
[2020-05-26] MEDS ORDERED: PIPERACILLIN-TAZOBACTAM 3.375 GM in SODIUM CHLORIDE 0.9% 100 ML IVPB SCH (12:00)
[2020-05-26] MEDS: AZITHROMYCIN 500 MG TAB PO SCH (12:58)
--- NOTE | 2020-05-26 14:54 | P.HPIM ---
History of Present Illness This is a 65-year-old female given compensative fever shortness of breath and chest discomfort has been going on for last few days. Patient was also comparing of intermittent headache. Patient had decortication of both lungs in the past had an empyema in the past. Patient had a CAT scan of the chest which showed extensive airspace infiltrate in the right lower lobe and loculated fluid fluid in the right side extensive pleural calcification enlarged mediastinal and bronchial lymph nodes and mild pleural thickening. Pulmonology evaluated the patient patient was started on cefepime and the azithromycin treating for pneumonia in the right lower lobe. Review of Systems REVIEW OF SYSTEMS: CONSTITUTIONAL: No fever, no malaise, no fatigue. HEENT: No recent visual problems or hearing problems. Denied any sore throat. CARDIOVASCULAR: No chest pain, orthopnea, PND, no palpitations, no syncope. PULMONARY: Mentioned in HPI GASTROINTESTINAL: No diarrhea, no nausea, no vomiting, no abdominal pain. NEUROLOGICAL: No headaches, no weakness, no numbness. HEMATOLOGICAL: Denies any bleeding or petechiae. GENITOURINARY: Denies any burning micturition, frequency, or urgency. MUSCULOSKELETAL/RHEUMATOLOGICAL: Denies any joint pain, swelling, or any muscle pain. ENDOCRINE: Denies any polyuria or polydipsia. The rest of the 14-point review of systems is negative. Past Medical History Past Medical History: Thyroid Disorder Additional Past Medical History / Comment(s): Recurrent bilateral pleural effusions with previous thoracentesis and bilateral pleurodesis secondary to ulcer colitis, status post colectomy. History of Any Multi-Drug Resistant Organisms: None Reported Past Surgical History: Orthopedic Surgery, Ventriculoperitoneal Shunt Additional Past Surgical History / Comment(s): left shoulder, hand surgery, colectomy with reversal; thyroid removal with radiation Past Anesthesia/Blood Transfusion Reactions: No Reported Reaction Past Psychological History: No Psychological Hx Reported Smoking Status: Never smoker Past Alcohol Use History: Rare Past Drug Use History: None Reported - Past Family History Father Family Medical History: Myocardial Infarction ([place]) Additional Family Medical History / Comment(s): Mother Family Medical History: Cancer Additional Family Medical History / Comment(s): Medications and Allergies Home Medications Medication Instructions Recorded Confirmed Type Multivitamins, Thera [Multivitamin] 1 tab PO HS 10/20/16 05/26/20 History Levothyroxine Sodium 112 mcg PO DAILY 05/26/20 05/26/20 History Allergies Allergy/AdvReac Type Severity Reaction Status Date / Time No Known Allergies Allergy Verified 05/26/20 10:26 Physical Exam Vitals: Vital Signs Temp Pulse Pulse Resp BP BP Pulse Ox 05/26/20 08:23 20 05/26/20 06:59 99.4 F 95 20 114/73 93 L 05/26/20 06:45 98.0 F 102 H 22 96/69 93 L 05/26/20 06:05 101.3 F H 05/26/20 05:58 94 L 05/26/20 05:46 102.2 F H 105 H 26 H 137/77 93 L 05/26/20 04:45 102.4 F H 101 H 20 154/86 94 L 05/26/20 04:18 111 H 05/26/20 04:07 114 H 05/26/20 03:33 102.2 F H 120 H 42 H 140/77 64 L Intake and Output 05/25/20 05/26/20 05/26/20 22:59 06:59 14:59 Intake Total 1050 Balance 1050 Intake: Intake, IV Titration 1050 Amount Sodium Chloride 0.9% 1, 1000 000 ml @ 999 mls/hr IV . Q1H1M ONE Rx#:[id number] cefTRIAXone 1 gm In 50 Sodium Chloride 0.9% 50 ml @ 100 mls/hr IVPB Q24HR [facility] Rx#:[id number] Other: Voiding Method Toilet Weight 56.245 kg PHYSICAL EXAMINATION: GENERAL: The patient is alert and oriented x3, not in any acute distress. Well developed, well nourished. HEENT: Pupils are round and equally reacting to light. EOMI. No scleral icterus. No conjunctival pallor. Normocephalic, atraumatic. No pharyngeal erythema. No thyromegaly. CARDIOVASCULAR: S1 and S2 present. No murmurs, rubs, or gallops. PULMONARY: Issues bilateral rhonchi ABDOMEN: Soft, nontender, nondistended, normoactive bowel sounds. No palpable organomegaly. MUSCULOSKELETAL: No joint swelling or deformity. EXTREMITIES: No cyanosis, clubbing, or pedal edema. NEUROLOGICAL: Gross neurological examination did not reveal any focal deficits. SKIN: No rashes. Results CBC & Chem 7: 05/26/20 03:58 05/26/20 03:58 Labs: Abnormal Lab Results - Last 24 Hours (Table) 05/26/20 05/26/20 05/26/20 Range/Units 03:55 03:58 03:58 Hct 53.4 H (39.0-53.0) % Lymphocytes # 0.4 L (1.0-4.8) k/uL D-Dimer 1.15 H (<0.60) mg/L FEU Sodium (137-145) mmol/L Chloride (98-107) mmol/L Glucose (74-99) mg/dL C-Reactive Protein (<10.0) mg/L Urine Protein 1+ H (Negative) Urine Blood Trace H (Negative) Urine Mucus Moderate H (None) /hpf 05/26/20 05/26/20 05/26/20 Range/Units 03:58 10:53 10:53 Hct (39.0-53.0) % Lymphocytes # (1.0-4.8) k/uL D-Dimer 1.18 H (<0.60) mg/L FEU Sodium 132 L (137-145) mmol/L Chloride 97 L (98-107) mmol/L Glucose 119 H (74-99) mg/dL C-Reactive Protein 59.1 H (<10.0) mg/L Urine Protein (Negative) Urine Blood (Negative) Urine Mucus (None) /hpf Thrombosis Risk Factor Assmnt - Choose All That Apply Each Factor Represents 1 point: Serious lung disease incl. pneumonia (< 1month) Each Risk Factor Represents 2 Points: Age 61-74 years Thrombosis Risk Factor Assessment Total Risk Factor Score: 3 Thrombosis Risk Factor Assessment Level: Moderate Risk Assessment and Plan Plan: -Extensive right lower lobe pneumonia: Patient will be continued on Rocephin and azithromycin. Will be treated for pneumonia and patient was continued on IV fluids and inhalational treatments. -Chronic right-sided loculated pleural effusion -History of pleurodesis with for his recurrent pleural effusions -Hyperthyroidism -History of ulcerative colitis with bowel resection in the past.
--- NOTE | 2020-05-26 16:16 | CONS ---
CONSULTATION PULMONARY/CRITICAL CARE CONSULTATION: DATE OF SERVICE: May 26, 2020 HISTORY OF PRESENT ILLNESS: 65-year-old male, well known to us. The patient sees Dr. Corcoran as a primary and my partner Dr. James for his lungs. The patient came in with a 2 or 3-day history of increasing shortness of breath, chest congestion, cough, fever, chills, muscle aches, joint aches and generally just not feeling well. He did have some chest discomfort as well as well as headache. The patient feels like he has the flu. He was tested for Covid but that is currently pending. He has a previous history of decortication of both lungs secondary to empyema. That was many years back. The patient also carries with him a diagnosis of recurrent bilateral pleural effusions, previous multiple thoracentesis and bilateral pleurodesis, ulcerative colitis, and previous colectomy. Currently, the patient is in his room. He is on O2 at 2 L. He has an IV in place. In addition, this morning, he was found to be coughing up some bright red blood. CURRENT HOME MEDICATIONS: Include beta-carotene, vitamin B12, Synthroid, multivitamins, omega-3 fatty acids. He also apparently has been given a prescription for Levaquin to take when he got sick. No allergies. MEDICAL HISTORY: Recurrent bilateral pleural effusions with previous thoracentesis and bilateral pleurodesis. He also has a history of ulcerative colitis and possibly ulcerative colitis related pulmonary disease. He is status post colectomy. Other medical history includes hypothyroidism for which he takes levothyroxine. SURGICAL HISTORY: Includes previous colectomy, ventricular peritoneal shunt, left shoulder surgery, left hand surgery, colectomy with colostomy and subsequent reversal, and thyroidectomy. SOCIAL HISTORY: Negative for tobacco use. He drinks rarely. No illicit drug use. FAMILY HISTORY: Positive for father and mother both . Father from myocardial infarction. Mother from cancer. REVIEW OF SYSTEMS: CONSTITUTIONAL: Fatigue, weakness, fever. NEUROLOGIC headache. HEENT negative. CARDIOVASCULAR: Chest pain. PULMONARY: Shortness of breath, chest congestion, cough, wheezing, phlegm production, hemoptysis. GI negative. negative. RHEUMATOLOGIC: Negative. IMMUNOLOGIC negative. ENDOCRINOLOGIC negative. DERMATOLOGIC negative. PHYSICAL EXAMINATION: VITAL SIGNS: Current vital signs are reviewed. His temperature initially was 101.3. Temperature currently is 99.4, heart rate 95, respiratory rate 20. Blood pressure 114/73, mean 86. 4 L saturation 93 to 94%. GENERAL: Appears in no acute distress. Looks ill. Coughing up some blood. HEENT: Examination is grossly unremarkable. Nasal O2 noted. NECK: Supple. Full range of motion. No adenopathy. Neck veins are flat. CARDIOVASCULAR: Examination reveals regular rhythm and rate. Heart rate about 100 beats per minute. It is regular. He is in sinus rhythm. S1, S2 normal. No murmur. LUNGS: Reveal diffuse inspiratory and expiratory rhonchi. No wheezes or crackles. Breath sounds are diminished throughout. Breath sounds slightly more diminished on the right lung than on the left. ABDOMEN: Soft. EXTREMITIES are intact. No cyanosis, clubbing, or edema. SKIN: Without rash. NEUROLOGIC: Examination is brief but nonfocal. LABS: Reviewed. White count 7.4, hemoglobin 16.8, hematocrit 53.4, platelet count a 175,000. White count 7.4, hemoglobin 16.8, hematocrit 53.4, and platelet count 175,000. PT/INR normal. PTT is 27.2. D-dimer is 1.15 and 1.18. Sodium 132, potassium 4.5, chloride 97, CO2 is 30, anion gap is 5. BUN and creatinine were 13 and 0.69, glucose 119. Lactic acid 1. Troponin was 0.015. LDH 544. C-reactive protein 59.1. N- terminal proBNP 439. Albumin 3.7. Urine was dark and yellow. 1+ protein, trace blood, moderate mucus. Current microbiology is negative. EKG shows sinus tachycardia. Chest x-ray shows chronic bilateral pleural effusions, somewhat increased compared to older examination. There is also some chronic infiltrative changes right lung greater than left. CT angiogram was negative for PE. There was extensive airspace infiltrate in the right lower lung with loculated pleural effusion on the right and extensive pleural count occasion. There is also some pleural thickening on the left. Some left subpleural infiltrate. Compared to a previous CT scan done of on February 2011, there was some progression of disease. Current medications are reviewed. He is on albuterol updrafts, Zithromax, Rocephin, DuoNeb, levothyroxine, and saline IV. Covid testing is currently pending. ASSESSMENT: 1. Febrile illness characterized by muscle aches and joint aches, cough, chest congestion, fever, shortness of breath, phlegm production, and now hemoptysis, rule out bacterial pneumonia versus Covid-19 pneumonitis. 2. History of ulcerative colitis, with ulcerative colitis associated lung disease, with previous bilateral pleural effusions, multiple thoracentesis and bilateral pleurodesis. 3. Previous colectomy secondary to ulcerative colitis. 4. Hypothyroidism. PLAN: The patient was started on standard antibiotics for community-acquired pneumonia. COVID-19 testing is pending. Inflammatory markers were ordered. The patient is currently on updrafts. No steroids necessary at this time. We will await the results of the Covid- 19 test. If it is positive, we will likely add some Decadron, and also possibly some other medications to consider such as Remdesivir and interleukin-6. Additional recommendations and suggestions are forthcoming. Prognosis is guarded. We will continue to follow. MMODL / IJN: [id number] / FAMILIA
[2020-05-26] MEDS: ACETAMINOPHEN TAB 325 MG TAB PO PRN (17:08)
[2020-05-27] MEDS: ACETAMINOPHEN TAB 325 MG TAB PO PRN (02:39)
[2020-05-27] MEDS: SODIUM CHLORIDE 0.9% 1,000 ML IV SCH ×2 (02:42→11:43)
[2020-05-27] MEDS ORDERED: LEVOFLOXACIN 750MG-D5W PMX 750 MG in DEXTROSE/WATER 1 150ML.BAG IVPB SCH (06:00)
[2020-05-27] MEDS ORDERED: LEVOTHYROXINE 112 MCG TAB PO SCH (06:30)
--- NOTE | 2020-05-27 06:49 | XR ---
EXAMINATION TYPE: XR chest 1V portable DATE OF EXAM: 05/27/2020 CLINICAL HISTORY: Difficulty breathing progress study. Possible Covid-19. TECHNIQUE: Single AP portable upright view of the chest is obtained. COMPARISON: Chest x-ray and CT chest from one day earlier. FINDINGS: Persistent cardiomegaly. Persistent right-sided volume loss with nonsimple small to modera te size right pleural fluid collection. Chronic parenchymal changes with component of interstitial ed gissell. Right greater than left bibasilar opacities. Osseous structures are intact. Right-sided pleural calcifications noted. IMPRESSION: Cardiomegaly and chronic parenchymal changes with chronic right-sided volume loss. Persis tent right basilar atelectasis and/or consolidation. Developing bilateral interstitial edema noted on current study on background chronic changes.
[2020-05-27 07:05] LABS: HCT 53.4 % (39.0-53.0); HGB 16.1 gm/dL (13.0-17.5); Hypochromasia Marked; MCH 31.5 pg (25.0-35.0); MCHC 30.2 g/dL (31.0-37.0); MCV 104.5 fL (80.0-100.0); Macrocytosis Slight; Mean Platelet Volume 7.7; Platelet Count 166 k/uL (150-450); RBC 5.12 m/uL (4.30-5.90); RDW 13.4 % (11.5-15.5); WBC 6.4 k/uL (3.8-10.6)
[2020-05-27 07:16] LABS: African American GFR (CKD) >90 (>60 ml/min/1.73 sqM); Anion Gap 5 mmol/L; Blood Urea Nitrogen 13 mg/dL (9-20); Calcium 8.2 mg/dL (8.4-10.2); Carbon Dioxide 33 mmol/L (22-30); Chloride 97 mmol/L (98-107); Glucose 86 mg/dL (74-99); Non-African American GFR(CKD) >90 (>60 ml/min/1.73 sqM); Potassium 5.1 mmol/L (3.5-5.1); Sodium 135 mmol/L (137-145)
[2020-05-27] MEDS ORDERED: TIOTROPIUM 18 MCG/PUFF INHALER INHALATION SCH (08:00)
[2020-05-27] MEDS: AZITHROMYCIN 500 MG TAB PO SCH (08:11)
[2020-05-27] MEDS: ALBUTEROL HFA INHALER INHALATION SCH ×5 (08:34→20:09)
[2020-05-27] MEDS ORDERED: DEXAMETHASONE SOD PHOSPHATE 4 MG/ML 1 ML VIAL IV SCH (09:00)
--- NOTE | 2020-05-27 10:56 | P.PN ---
Subjective Progress Note Date: 05/27/20 Principal diagnosis: Acute pneumonia rule out bacterial pneumonia versus covered 19 pneumonitis The patient is seen today 05/27/2020 in follow-up on the regular medical floor. He is currently resting in bed. He is still having ongoing issues with muscle aches joint aches weakness. He has worsening shortness of breath. O2 saturations in the low 90s on 6 L high flow nasal cannula now. Currently afebrile. Chest x-ray continues to show multilobar infiltrates with persistent right basilar atelectasis/consolidation. Developing bilateral interstitial edema noted on background chronic changes. Blood culture reveals no growth to date. White count 6.4. Hemoglobin 16.1. Platelets 166. Sodium 135. Potassium 5.1. Bicarb 33. Creatinine 0.71. He remains on ceftriaxone and azithromycin along with albuterol and Spiriva. Objective - Vital Signs Vital signs: Vital Signs Temp 98.6 F 05/27/20 07:39 Pulse 92 05/27/20 07:39 Resp 22 05/27/20 10:04 BP 136/77 05/27/20 07:39 Pulse Ox 92 L 05/27/20 10:04 Intake & Output 05/26/20 05/27/20 05/27/20 18:59 06:59 18:59 Intake Total 1530 Balance 1530 Intake: Intake, IV Titration 1050 Amount Sodium Chloride 0.9% 1, 1000 000 ml @ 999 mls/hr IV . Q1H1M ONE Rx#:[id number] cefTRIAXone 1 gm In 50 Sodium Chloride 0.9% 50 ml @ 100 mls/hr IVPB Q24HR [facility] Rx#:[id number] Oral 480 Other: Voiding Method Toilet Toilet Toilet # Voids 2 1 - Exam GENERAL EXAM: Alert, very pleasant 65-year-old gentleman, on 6 L nasal cannula, comfortable in no apparent distress. HEAD: Normocephalic. EYES: Normal reaction of pupils, equal size. NOSE: Clear with pink turbinates. THROAT: No erythema or exudates. NECK: No masses, no JVD. CHEST: No chest wall deformity. LUNGS: Equal air entry with bilateral scattered rhonchi. CVS: S1 and S2 normal with no audible murmur, regular rhythm. ABDOMEN: No hepatosplenomegaly, normal bowel sounds, no guarding or rigidity. SPINE: No scoliosis or deformity SKIN: No rashes CENTRAL NERVOUS SYSTEM: No focal deficits, tone is normal in all 4 extremities. EXTREMITIES: There is no peripheral edema. No clubbing, no cyanosis. Peripheral pulses are intact. - Labs CBC & Chem 7: 05/27/20 06:20 05/27/20 06:20 Labs: Abnormal Lab Results - Last 24 Hours (Table) 05/26/20 05/26/20 05/26/20 Range/Units 10:53 10:53 10:53 Hct (39.0-53.0) % MCV (80.0-100.0) fL MCHC (31.0-37.0) g/dL D-Dimer 1.18 H (<0.60) mg/L FEU Sodium (137-145) mmol/L Chloride (98-107) mmol/L Carbon Dioxide (22-30) mmol/L Calcium (8.4-10.2) mg/dL C-Reactive Protein 59.1 H (<10.0) mg/L Procalcitonin 0.28 H (0.02-0.09) ng/mL 05/27/20 05/27/20 Range/Units 06:20 06:20 Hct 53.4 H (39.0-53.0) % MCV 104.5 H (80.0-100.0) fL MCHC 30.2 L (31.0-37.0) g/dL D-Dimer (<0.60) mg/L FEU Sodium 135 L (137-145) mmol/L Chloride 97 L (98-107) mmol/L Carbon Dioxide 33 H (22-30) mmol/L Calcium 8.2 L (8.4-10.2) mg/dL C-Reactive Protein (<10.0) mg/L Procalcitonin (0.02-0.09) ng/mL Microbiology - Last 24 Hours (Table) 05/26/20 03:58 Blood Culture - Preliminary Blood No Growth after 24 hours Assessment and Plan Assessment: Febrile illness characterized of muscle aches and joint pain productive phlegm, rule out bacterial pneumonia versus covert 19 pneumonitis 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 Jovel Chest x-ray and labs reviewed CoVID 19 screen pending Add Decadron 6 mg IV daily Awaiting interleukin-6 results Monitor inflammatory markers Continue isolation precautions We'll continue to follow I, the cosigning physician, performed a history & physical examination of the patient. Lungs sounds with bilateral scattered rhonchi. Maintaining good O2 saturations in the 90s on 6 L/m per nasal cannula. I discussed the assessment and plan of care with my nurse practitioner, Josie Nazario. I attest to the above note as dictated by her.
--- NOTE | 2020-05-27 13:18 | P.PN ---
Subjective patient is admitted for sepsis secondary to possible right lower lobe pneumonia. Pulmonary valid the patient did believe may have Covid19 patient is presently on isolation covid 19 test is still pending. Patient is requiring 6 L of onset in today still which are of breath feeling bit better overall does have generalized weakness. Constitutional:still has some fatigue Cardio vascular: denied any chest pain, palpitations Gastrointestinal denied any nausea vomiting Pulmonary: still has shortness of breath cough Neurologic denied any new focal deficits All inpatient medications were reviewed and appropriate changes in these medications as dictated in the interval history and assessment and plan. Objective - Vital Signs Vital signs: Vital Signs Temp 98.6 F 05/27/20 07:39 Pulse 92 05/27/20 07:39 Resp 22 05/27/20 10:04 BP 136/77 05/27/20 07:39 Pulse Ox 92 L 05/27/20 10:04 Intake & Output 05/26/20 05/27/20 05/27/20 18:59 06:59 18:59 Intake Total 1530 Balance 1530 Intake: Intake, IV Titration 1050 Amount Sodium Chloride 0.9% 1, 1000 000 ml @ 999 mls/hr IV . Q1H1M ONE Rx#:[id number] cefTRIAXone 1 gm In 50 Sodium Chloride 0.9% 50 ml @ 100 mls/hr IVPB Q24HR [facility] Rx#:[id number] Oral 480 Other: Voiding Method Toilet Toilet Toilet # Voids 2 1 2 - Exam PHYSICAL EXAMINATION: GENERAL: The patient is alert and oriented x3, not in any acute distress. Well developed, well nourished. HEENT: Pupils are round and equally reacting to light. EOMI. No scleral icterus. No conjunctival pallor. Normocephalic, atraumatic. No pharyngeal erythema. No thyromegaly. CARDIOVASCULAR: S1 and S2 present. No murmurs, rubs, or gallops. PULMONARY: Issues bilateral rhonchi ABDOMEN: Soft, nontender, nondistended, normoactive bowel sounds. No palpable organomegaly. MUSCULOSKELETAL: No joint swelling or deformity. EXTREMITIES: No cyanosis, clubbing, or pedal edema. NEUROLOGICAL: Gross neurological examination did not reveal any focal deficits. SKIN: No rashes. Note: Because of COVID 19 isolation, some of the history and physical exam findings or indirect and obtained from nursing staff, and other physician examinations to avoid unnecessary contact with the patient. - Labs CBC & Chem 7: 05/27/20 06:20 05/27/20 06:20 Labs: Abnormal Lab Results - Last 24 Hours (Table) 05/26/20 05/27/20 05/27/20 Range/Units 10:53 06:20 06:20 Hct 53.4 H (39.0-53.0) % MCV 104.5 H (80.0-100.0) fL MCHC 30.2 L (31.0-37.0) g/dL Sodium 135 L (137-145) mmol/L Chloride 97 L (98-107) mmol/L Carbon Dioxide 33 H (22-30) mmol/L Calcium 8.2 L (8.4-10.2) mg/dL Procalcitonin 0.28 H (0.02-0.09) ng/mL Microbiology - Last 24 Hours (Table) 05/26/20 03:58 Blood Culture - Preliminary Blood No Growth after 24 hours Assessment and Plan Plan: -Extensive right lower lobe pneumonia: Patient will be continued on Rocephin and azithromycin. Will be treated for pneumonia and patient was continued on IV f luids and inhalational treatments.Covid 19 is pending. Patient was started on Decadron and IL-6 was ordered by pulmonology. Patient's pro calcitonin 0.28 -Chronic right-sided loculated pleural effusion -History of pleurodesis with for his recurrent pleural effusions -Hyperthyroidism -History of ulcerative colitis with bowel resection in the past.
[2020-05-27 15:57] VITALS: RESP 20; TEMP 98.4
[2020-05-27] MEDS ORDERED: ONDANSETRON 4 MG/2 ML VIAL IVP PRN (19:30)
[2020-05-27 19:46] VITALS: BP 133/74; PULSE 83
--- NOTE | 2020-05-27 23:29 | P.EN ---
patient was found unresponsive in the bathroom, he was last seen normal about 30 min before this event. code blue was activated CPR initiated following ACLS protocol, patient was intubated, received epinephrine and bicarb, please refer to code blue event documentation for exact dosing of meds given and sequence of events. patient monitor was showing PEA patient CPR continued for 20 minutes. patient was pronounced after 20 minutes of CPR, without any improvements primary team paged await call back family notified and on their way.
--- NOTE | 2020-05-28 15:01 | P.DS ---
Providers Date of admission: 05/26/20 06:02 Attending physician: Rigo Corcoran Consults: 05/26/20 05:57 Consult Physician Routine Consulting Provider: Bri James Consult Reason/Comments: Patient known to you Do you want consulting provider notified?: Yes Primary care physician: Rigo Corcoran Hospital Course: patient is admitted for sepsis secondary to possible right lower lobe pneumonia. Pulmonary valid the patient did believe may have Covid19 patient is presently on isolation covid 19 test is still pending. Patient is requiring 6 L of onset in today still which are of breath feeling bit better overall does have generalized weakness. Patient's Covid 19 was negative. At night patient is found unresponsive in the bathroom and severe was initiated CODE BLUE was called. Please refer to the physician documentation regarding that. Patient did not survive the code please refer to nursing documentation for the exact time of . Please refer to my documentation a progress note for further details of hospitalization and medical issues that were addressed here Preliminary cause of : Pneumonia and sepsis Patient Condition at Discharge: Serious Plan - Discharge Summary Discharge Rx Participant: Yes New Discharge Prescriptions: No Action Multivitamins, Thera [Multivitamin] 1 tab PO HS Levothyroxine Sodium 112 mcg PO DAILY Discharge Medication List Multivitamins, Thera [Multivitamin] 1 tab PO HS 10/20/16 [History] Levothyroxine Sodium 112 mcg PO DAILY 05/26/20 [History] Follow up Appointment(s)/Referral(s): Rigo Corcoran MD [Primary Care Provider] - 1-2 days Discharge Disposition: - Preliminary Cause of Preliminary Cause of : Sepsis secondary to pneumonia
--- NOTE | 2020-05-29 23:31 | CDI ---
Documentation Clarification Form Date: 05/30/2020 From: Jhansirani. Amaya Phone: If you have a question about this query, please contact Annie Salazar Columnist/Commentator at [phone] between 8am and 5pm. Admit Date: 05/26/2020 Discharge Date: 05/27/2020 Patient Name: Robb Clancy Visit Number: [id number] ATTENTION: The Clinical Documentation Specialists (CDI) and [facility] Coding Staff appreciate your assistance in clarifying documentation. Please respond to the clarification below the line at the bottom and electronically sign. The CDI & [facility] Coding staff will review the response and follow-up if needed. Please note: Queries are made part of the Legal Health Record. If you have any questions, please contact the author of this message via ITS. Dear Melva Mercado MD Patient has BMI- 19.4 as per the vital signs. History/Risk Factors: Sepsis, Pneumonia Labs: Current BMI:19.4 Treatment: No treatment. Dietary Consult: No In your professional opinion, can you please clarify if these findings signify one of the following conditions? * Mild Protein-Calorie Malnutrition * Moderate Protein-Calorie Malnutrition * Severe Protein-Calorie Malnutrition * Malnutrition, unspecified * Malnutrition following GI surgery * Other condition, please specify (Last Revision: April 2019) Moderate Protein-Calorie Malnutrition MTDD
--- NOTE | 2020-05-30 00:05 | CDI ---
Documentation Clarification Form Date: 05/30/2020 From: Jhansirani. Amaya Phone: If you have a question about this query, please contact Annie Salazar Set Designer at [phone] between 8am and 5pm. Admit Date: 05/26/2020 Discharge Date: 05/27/2020 Patient Name: Robb Clancy Visit Number: [id number] ATTENTION: The Clinical Documentation Specialists (CDI) and [facility] Coding Staff appreciate your assistance in clarifying documentation. Please respond to the clarification below the line at the bottom and electronically sign. The CDI & [facility] Coding staff will review the response and follow-up if needed. Please note: Queries are made part of the Legal Health Record. If you have any questions, please contact the author of this message via ITS. Dear Rigo Pretty MD Patient has BMI- 19.4 as per the vital signs. History/Risk Factors: Sepsis, Pneumonia Labs: Current BMI:19.4 Treatment: No treatment. Dietary Consult: No In your professional opinion, can you please clarify if these findings signify one of the following conditions? Mild Protein-Calorie Malnutrition Moderate Protein-Calorie Malnutrition Severe Protein-Calorie Malnutrition Malnutrition, unspecified Malnutrition following GI surgery-This is the probable dx Other condition, please specify (Last Revision: April 2019) MTDD
--- NOTE | 2020-06-07 13:25 | CDI ---
Documentation Clarification Form Date: 06/07/2020 12:19:17 PM From: Isela Penaloza RN, CCDS Admit Date: 05/26/2020 06:02:00 AM Patient Name: Robb Clancy Visit Number: [id number] Discharge Date: 05/27/2020 10:27:00 PM ATTENTION: The Clinical Documentation Specialists (CDI) and [facility] Coding Staff appreciate your assistance in clarifying documentation. Please respond to the clarification below the line at the bottom and electronically sign. The CDI & [facility] Coding staff will review the response and follow-up if needed. Please note: Queries are made part of the Legal Health Record. If you have any questions, please contact the author of this message via ITS. Dr. Easley The patient presented with fever, SOB, and Chest Discomfort with an SPO2 of 64% on room air History/Risk Factors: Recurrent bilateral effusions with previous thoracentesis and bilateral pleurodesis secondary to ulcerative colitis. Tobacco use: none Home oxygen: none Clinical Indicators: 05/26 ED Note: "Respiratory: Reports: cough, dyspnea. Respiratory exam: Present: respiratory distress (Mild tachypnea), rales, rhonchi 05/26 Consult: "PULMONARY: Shortness of breath, chest congestion, cough, wheezing, phlegm production, hemoptysis. Febrile illness characterized by muscle aches and joint aches, cough, chest congestion, fever, shortness of breath, phlegm production, and now hemoptysis, rule out bacterial pneumonia versus Covid-19 pneumonitis.2.History of ulcerative colitis, with ulcerative colitis associated lung disease, with previous bilateral pleural effusions, multiple thoracentesis and bilateral pleurodesis." 05/28 D/C Summary: "is requiring 6 L of oxygen today still which are of breath feeling bit better overall does have generalized weakness. Patient's Covid 19 was negative. At night patient is found unresponsive in the bathroom and severe was initiated CODE BLUE was called." 05/26 333 Admission Vital signs: Temp 102.2, HR 120, RR 42, Spo2 140/77, spo2 64% on room air 05/26 0546 V/S: temp 102.2, HR 105, RR 26, B/P 137/77, Spo2 93% 4L NC 05/27 0822 V/S RR 24 SOB, Labored, coughing spo2 91% 6L NC 05/27 Lung/Breathing assessment: "Lungs sounds with bilateral scattered rhonchi." Treatment: Decadron 6 mg IVP QD Breathing TX: Duoneb INH Pulse ox per unit protocol O2: Came in on room air, increase to 4L NC further increased to 6L NC In your professional opinion, can you please clarify if these findings signify one of the following conditions? Acute Hypoxic Respiratory Failure Acute Hypercapnic Respiratory Failure Other Diagnosis, please specify Unable to determine (Last Query Form Revision: June 2019) Acute Hypoxic Respiratory Failure MTDD
== END 2020-05-27 22:27 | disposition expired | DRG 871 ==
LOC: EC 03:27 → 4SSUR 06:02
PROVIDERS: ADMIT Family Medicine; ATTEND Family Medicine
PROC: 0BH17EZ Insertion of Endotracheal Airway into Trachea, Via Natural or Artificial Opening (ICD-10-PCS; principal; 2020-05-27)
PROC: 5A12012 Performance of Cardiac Output, Single, Manual (ICD-10-PCS; principal; 2020-05-27)
DX: A41.9 Sepsis, unspecified organism (principal); J18.9 Pneumonia, unspecified organism; J96.01 Acute respiratory failure with hypoxia; J90 Pleural effusion, not elsewhere classified; J98.11 Atelectasis; E44.0 Moderate protein-calorie malnutrition; Z68.1 Body mass index [BMI] 19.9 or less, adult; K91.2 Postsurgical malabsorption, not elsewhere classified; R04.2 Hemoptysis; K51.90 Ulcerative colitis, unspecified, without complications; R51 Headache; Z20.828 Contact with and (suspected) exposure to other viral communicable diseases; R40.2362 Coma scale, best motor response, obeys commands, at arrival to emergency department; R40.2142 Coma scale, eyes open, spontaneous, at arrival to emergency department; I46.9 Cardiac arrest, cause unspecified; R40.2252 Coma scale, best verbal response, oriented, at arrival to emergency department; Y83.9 Surgical procedure, unspecified as the cause of abnormal reaction of the patient, or of later complication, without mention of misadventure at the time of the procedure; E89.0 Postprocedural hypothyroidism; Z79.890 Hormone replacement therapy; Z79.899 Other long term (current) drug therapy; Z90.49 Acquired absence of other specified parts of digestive tract; Z98.890 Other specified postprocedural states; Z87.19 Personal history of other diseases of the digestive system; Z80.9 Family history of malignant neoplasm, unspecified; Z82.49 Family history of ischemic heart disease and other diseases of the circulatory system; Z98.2 Presence of cerebrospinal fluid drainage device; Z90.89 Acquired absence of other organs; Z92.3 Personal history of irradiation
CPT/HCPCS: 36415; 71045; 71275; 80048; 80053; 81001; 83520; 83605; 83615; 83735; 83880; 84145; 84484; 85025; 85027; 85379; 85610; 85730; 86140; 87040; 93005; 94640; 96365; 96367; 99285